=== PATIENT | female | born 1995 | race Caucasian/White ===

== ENCOUNTER 2022-10-03 07:36 | Inpatient (IN) ==
[2022-10-03] MEDS ORDERED: OXYTOCIN 30 UNITS/500 ML BAG IV PRN ×4 (07:53→19:57)
--- NOTE | 2022-10-03 08:10 | Obstetrical Progress Note ---
Date of Service October 03, 2022 Assessment & Plan (1) Encounter for induction of labor: (2) Gestational diabetes mellitus (GDM) affecting , antepartum: (3) Need for rhogam due to Rh negative mother: Plan - Patient admitted to labor and delivery for initiation of medical induction of labor - GDM noted at 31 wks EGA, 2 hour glucose testing declined, monitored glucose at home briefly, no active tx or insulin mgmt - TAMMY /-1 at last OB visit, no Osborne bulb placement - Presenting TAMMY pending exam by Dr. Dhillon - No evidence of contractions, thus oxytocin augmentation of labor will be started per protocol - Once contractions are progressing, will consider ROM - Discussed w/ patient alternate methods of pain control (Stadol) prior to epidural at patient request - Will anticipate epidural as contractions arise - Labs pending Admission and Anticipated Discharge Date Admission Date: October 03, 2022 Doris Humphreys is a 27 year old female currently at 39 1/7 with DEEPAK 10/09/22 determined by LMP (01/02/22) who presents to Labor and Delivery for scheduled induction. Complications: Rh - mother, hx of PPH, GDM at 31 wks (declined 2 hour) Reason for Induction/: Elective Movement: Yes Fluid Loss/ROM: No Bloody show/discharge: No External FHT and uterine monitor: Category 1, tracing reactive, good FHT variability, average 135 w/ acels and no dcels, no contractions Last OB appointment: 10/01/22, regular care Labs: Blood Type: A- Antibody Screen: Negative Hg/Hct (today): Pending WBC/Plt (today): Pending Rubella: Immune RPR: Non-reactive Gonorrhea: Negative Chlamydia: Negative HIV: Negative HbSAg: Negative GBS: Negative Cff-DNA: Low risk ROS: - Denies fever, chills, sweats - Denies dyspnea or pleuritic pain - Denies chest pain, palpitations, or pressure - Denies breast pain - Denies dysuria - Denies headache or visual changes Physical Exam Physical Exam: General: Alert, oriented. No acute distress. Cardiac: Regular rate and rhythm, no murmurs/rubs/gallops. Respiratory: Clear to auscultation bilaterally a/p, no wheezes/rales/rhonchi. No increased work of breathing. Symmetrical chest rise. No respiratory distress. Abdomen: Gravid; reactive FHTs; Position: Vertex by Kayden Maneuver Pelvic: TAMMY pending per Dr. Dhillon Lower Extremities: No lower extremity edema or swelling. No deep calf pain. Wu's negative bilaterally. Results & Data ([facility]) Vital Signs (Past 12 Hours) Vital Signs Temp Pulse Resp BP 10/03/22 07:48 36.8 C 76 22 103/68 Resident Activity Tracking Resident Involvement: Resident Care Provided Care Provided: OB Delivery
[2022-10-03] MEDS ORDERED: LIDOCAINE 1% LOCAL 20 ML VIAL INFIL PRN (08:11)
--- NOTE | 2022-10-03 08:24 | History & Physical Report ---
Date of Service October 03, 2022 Assessment & Plan (1) Encounter for induction of labor: (2) Gestational diabetes mellitus (GDM) affecting , antepartum: (3) Need for rhogam due to Rh negative mother: Plan - Patient admitted to labor and delivery for initiation of medical induction of labor - GDM noted at 31 wks EGA, 2 hour glucose testing declined, monitored glucose at home briefly, no active tx or insulin mgmt - TAMMY /-1 at last OB visit, no Osborne bulb placement - Presenting TAMMY pending exam by Dr. Dhillon - No evidence of contractions, thus oxytocin augmentation of labor will be started per protocol - Once contractions are progressing, will consider ROM - Discussed w/ patient alternate methods of pain control (Stadol) prior to epidural at patient request - Will anticipate epidural as contractions arise - Labs pending Admission and Anticipated Discharge Date Admission Date: October 03, 2022 History of Present Illness Chief Complaint: Induction of Labor Primary Care Provider: Navi Humphreys is a 27 year old female currently at 39 1/7 with DEEPAK 10/09/22 determined by LMP (01/02/22) who presents to Labor and Delivery for scheduled induction. Complications: Rh - mother, hx of PPH, GDM at 31 wks (declined 2 hour) Reason for Induction/: Elective Movement: Yes Fluid Loss/ROM: No Bloody show/discharge: No External FHT and uterine monitor: Category 1, tracing reactive, good FHT variability, average 135 w/ acels and no dcels, no contractions Last OB appointment: 10/01/22, regular care Labs: Blood Type: A- Antibody Screen: Negative Hg/Hct (today): Pending WBC/Plt (today): Pending Rubella: Immune RPR: Non-reactive Gonorrhea: Negative Chlamydia: Negative HIV: Negative HbSAg: Negative GBS: Negative Cff-DNA: Low risk ROS: -Denies fever, chills, sweats -Denies dyspnea or pleuritic pain -Denies chest pain, palpitations, or pressure -Denies breast pain -Denies dysuria -Denies headache or visual changes Allergies Allergy/AdvReac Type Severity Reaction Status Date / Time No Known Allergies Allergy Verified 10/01/22 10:21 Home Medications Medication Instructions Recorded Confirmed Type prenat.vits,kiran,[id number] 1 tab PO DAILY 02/20/22 10/01/22 History acetone (urine) test (Ketone Urine #50 ea 08/31/22 10/01/22 Rx Test strips) blood sugar diagnostic (OneTouch #150 ea 08/31/22 10/01/22 Rx Verio test strips) blood-glucose meter (OneTouch #1 ea 08/31/22 10/01/22 Rx Verio Reflect Meter) lancets 33 gauge (OneTouch Delica #150 ea 08/31/22 10/01/22 Rx Lancets) Patient History Medical History (Updated 10/03/22 @ 08:05 by Avelina Lama DO) GERD (gastroesophageal reflux disease) History of anxiety History of asthma NO CURRENT PROBLEM Surgical History H/O ovarian cystectomy History of anesthesia reaction ANXIETY COMING OUT OF ANESTHESIA History of cholecystectomy History of myringotomy X 2 History of tonsillectomy and adenoidectomy [place] teeth removed Family History Grandmother (Maternal) Multiple myeloma Social History Smoking Status: Never smoker Second Hand Exposure: No; Hx Alcohol Use: No Hx Substance Use: No Preferred Language: Vietnamese Communication Ability: Effective Letter Stamping Machine Operator Required: No Beliefs That Will Affect Care: None marital status: marital status details: Hunter (28) [phone] Current Living Situation: Spouse Current Living Situation Comment: lives with FOB, daughter, 1 cat, fob to change litter. current occupational status: employed current occupation: medical assembler. Feels Safe at Home: Yes Assistive Devices: Contacts Physical Exam Physical Exam: General: Alert, oriented. No acute distress. Cardiac: Regular rate and rhythm, no murmurs/rubs/gallops. Respiratory: Clear to auscultation bilaterally a/p, no wheezes/rales/rhonchi. No increased work of breathing. Symmetrical chest rise. No respiratory distress. Abdomen: Gravid; reactive FHTs; Position: Vertex by Kayden Maneuver Pelvic: TAMMY pending per Dr. Dhillon Lower Extremities: No lower extremity edema or swelling. No deep calf pain. Wu's negative bilaterally. Results & Data ([facility]) Vital Signs (Past 12 Hours) Vital Signs Temp Pulse Resp BP 10/03/22 07:48 36.8 C 76 22 103/68 Code Status & VTE Plan VTE Prophylaxis Plan VTE Prophylaxis will be ordered: Yes Resident Activity Tracking Resident Involvement: Resident Care Provided Care Provided: OB Delivery
[2022-10-03] MEDS: LACTATED RINGER'S 1,000 ML IV PRN ×2 (08:30→13:29)
[2022-10-03 09:02] LABS: Hematocrit (blood only) 32.3 % (37.0-47.0); Hemoglobin 10.9 g/dl (12.0-16.0); Mean Corpuscular Hemoglobin 29.3 pg (25.0-34.0); Mean Corpuscular Hgb Conc 33.7 g/dL (32.0-36.0); Mean Corpuscular Volume 86.8 fL (80.0-100.0); Mean Platelet Volume 10.5 fL (9.4-12.4); Platelet Count 177 K/uL (130-400); RDW Coefficient of Variation 14.2 % (11.5-14.5); RDW Standard Deviation 44.7 fL (36.4-46.3); Red Blood Count 3.72 M/uL (4.20-5.40)
[2022-10-03 10:06] LABS: Albumin Level 3.4 gm/dl (3.4-5.0); Bilirubin,Total 1.1 mg/dl (0.2-1.0); Calcium 8.7 mg/dl (8.5-10.1); Potassium 3.7 mmol/L (3.5-5.1)
[2022-10-03 10:12] LABS: Albumin Globulin Ratio 1.1 (0.9-2); BUN Creatinine Ratio 10.3 (10-20); Creatinine Clr Calc Pharmacy 133.1 ml/min; Est GFR (African American) 145.4 ml/min; Est GFR (Non-African American) 125.4 ml/min; Total Protein 6.4 gm/dl (6.0-8.3)
[2022-10-03] MEDS ORDERED: ePHEDrine sulfate 50 MG/ML AMP ONE (13:13)
[2022-10-03] MEDS ORDERED: fentaNYL 2MCG/ML ROPIVACAINE 1.25MG/ML 100 ML BAG EPI ONE (13:14)
[2022-10-03] MEDS ORDERED: LIDOCAINE 2%/EPINEPHRINE 1:200,000 20 ML SDV ONE (13:14)
[2022-10-03] MEDS ORDERED: BUPIVACAINE 0.25% 30 ML VIAL ONE (13:14)
[2022-10-03] MEDS ORDERED: SODIUM CHLORIDE 0.9% INJ 10 ML VIAL ONE (13:14)
[2022-10-03] MEDS ORDERED: fentaNYL citrate 100 MCG/2 ML VIAL ONE (13:14)
[2022-10-03] MEDS ORDERED: ePHEDrine sulfate 50 MG/ML AMP IV PRN (14:13)
[2022-10-03] MEDS ORDERED: ONDANSETRON INJ 2 MG/ML 2 ML VIAL IV PRN (14:13)
[2022-10-03] MEDS ORDERED: fentaNYL 2MCG/ML ROPIVACAINE 1.25MG/ML 100 ML BAG EPI PRN (14:13)
[2022-10-03] MEDS ORDERED: NALBUPHINE HCL INJ 10 MG/ML AMP IV PRN (14:13)
[2022-10-03] MEDS ORDERED: NALOXONE HCL 1 MG in SODIUM CHLORIDE 0.9% 1000ML 1,000 ML IV PRN (14:13)
[2022-10-03] MEDS ORDERED: diphenhydrAMINE 50 MG/ML VIAL IV PRN (14:13)
[2022-10-03] MEDS ORDERED: NALOXONE HCL 0.4 MG/1 ML VIAL/CARP IV PRN (14:13)
--- NOTE | 2022-10-03 14:13 | Anesthesiology Consultation ---
Date of Service October 03, 2022 Assessment & Plan Chart Review Chart Review: Acceptable Risk for Surgery and Patient NOT seen in Pre Admission Testing Consults Requested none ASA ASA2 Proposed Anesthesia Anesthesia Type: Labor Epidural Risk / Benefits Reviewed With: PT / POA / Parent / Guardian, Accepts Plan and Informed Consent Obtained History Height/Weight Height: 5 ft 2 in Weight: 70.853 kg Allergies Allergy/AdvReac Type Severity Reaction Status Date / Time No Known Allergies Allergy Verified 10/01/22 10:21 Medications Home Medications Medication Instructions Recorded Confirmed Last Taken prenat.vits,kiran,hcz-[id number] 1 tab PO DAILY 02/20/22 10/01/22 Unknown acetone (urine) test (Ketone Urine #50 ea 08/31/22 10/01/22 Unknown Test strips) blood sugar diagnostic (OneTouch #150 ea 08/31/22 10/01/22 Unknown Verio test strips) blood-glucose meter (OneTouch #1 ea 08/31/22 10/01/22 Unknown Verio Reflect Meter) lancets 33 gauge (OneTouch Delica #150 ea 08/31/22 10/01/22 Unknown Lancets) Active Medications Generic Name Dose Route Start Last Admin Trade Name Freq PRN Reason Stop Dose Admin Lactated Ringer's 1,000 mls @ 125 mls/hr 10/03/22 08:11 10/03/22 13:47 Lr IV 10/05/22 08:10 125 mls/hr .Q8H PRN Infusion L&D Protocol Protocol Oxytocin 30 units in 500 mls @ 18 mls/hr 10/03/22 08:19 10/03/22 13:00 Pitocin IV 10/05/22 08:18 1.08 units/hr .Q24H PRN 18 mls/hr Labor Induction/Augmentation Titration Protocol 1.08 UNITS/HR Past Medical History Medical History (Updated 10/03/22 @ 08:05 by Avelina Lama DO) GERD (gastroesophageal reflux disease) History of anxiety History of asthma NO CURRENT PROBLEM Exercise / Class Metabolic Activity II 4-5 Yardwork/Stairs/Walk up hill Past Family History Family History Grandmother (Maternal) Multiple myeloma Past Surgical History Surgical History H/O ovarian cystectomy History of anesthesia reaction ANXIETY COMING OUT OF ANESTHESIA History of cholecystectomy History of myringotomy X 2 History of tonsillectomy and adenoidectomy [place] teeth removed Past Anesthesia History No Hx of Anesthesia Complications and No Family Hx of Anesthesia Complications History of PONV No Hx of PONV and No Hx of Motion Sickness Social History Smoking Status: Never smoker Hx Alcohol Use: No Alcohol type: beer and wine alcohol intake frequency: a few times a month Hx Substance Use: No substance use type: does not use Physical Exam Vital Signs Last Vital Signs Temp 36.8 C 10/03/22 09:03 Pulse 97 H 10/03/22 14:12 Resp 22 10/03/22 09:03 BP 110/68 10/03/22 14:12 Pulse Ox 100 10/03/22 14:10 ENMT Mouth: no dentition abnormality Thyromental Distance: > or= 3.5 Finger Breadths Mallampati Class: II Neck normal visual inspection Respiratory normal respiratory effort Auscultation: lungs clear to auscultation bilaterally Cardiovascular Rate/Rhythm: regular rate and regular rhythm Psychiatric Orientation: alert Testing Laboratory Results 10/03/22 08:43 10/03/22 08:43
--- NOTE | 2022-10-03 14:44 | Labor Progress Brief Note ---
Date of Service October 03, 2022 Subjective comfortable with epidural Assessment & Plan (1) Encounter for induction of labor: Plan continue current management. fetus category one. anticipate . Admission and Anticipated Discharge Date Admission Date: October 03, 2022 Physical Exam Physical Exam: cx--4/75/-2 arom--clear toco--q3-4min, pit at 18 efm--130s wtih mod variability, accels to 160s, no decels Results & Data ([place]) Vital Signs (Past 12 Hours) Vital Signs Temp Pulse Resp BP Pulse Ox 10/03/22 09:03 36.8 C 22 10/03/22 14:40 99 10/03/22 14:40 98 H 10/03/22 14:39 80 10/03/22 14:39 125/85 10/03/22 14:35 100 10/03/22 14:35 81 10/03/22 14:30 100 10/03/22 14:30 86 10/03/22 14:25 99 10/03/22 14:25 81 10/03/22 14:24 85 10/03/22 14:24 108/62 10/03/22 14:22 82 10/03/22 14:22 108/65 10/03/22 14:20 99 10/03/22 14:20 80 10/03/22 14:20 90 10/03/22 14:20 113/63 10/03/22 14:18 83 10/03/22 14:18 106/60 10/03/22 14:15 99 10/03/22 14:15 92 H 10/03/22 14:14 93 H 10/03/22 14:14 118/69 10/03/22 14:12 97 H 10/03/22 14:12 110/68 10/03/22 14:10 100 10/03/22 14:10 96 H 10/03/22 14:10 99/75 L 10/03/22 14:08 101 H 10/03/22 14:08 120/82 10/03/22 14:06 90 10/03/22 14:06 118/71 10/03/22 14:05 100 10/03/22 14:05 85 10/03/22 14:04 98 H 10/03/22 14:04 112/65 10/03/22 14:00 100 10/03/22 14:00 82 10/03/22 14:01 86 10/03/22 14:01 115/70 10/03/22 13:55 100 10/03/22 13:55 99 H 10/03/22 13:50 100 10/03/22 13:50 79 10/03/22 13:45 100 10/03/22 13:45 100 H 10/03/22 13:39 100 10/03/22 13:39 82 10/03/22 13:34 100 10/03/22 13:34 74 10/03/22 13:29 100 10/03/22 13:29 68 10/03/22 13:24 100 10/03/22 13:24 88 10/03/22 12:38 80 10/03/22 12:38 121/64 10/03/22 07:48 36.8 C 76 22 103/68 Coding Level of Care Code None Diagnoses Encounter for induction of labor Z34.90
[2022-10-03] MEDS ORDERED: OXYTOCIN 10 UNITS/ML 10ML VIAL ONE (15:18)
[2022-10-03] MEDS ORDERED: MoRPHine SULFATE PF 1 MG/ML 10 ML AMP/VIAL ONE (15:18)
[2022-10-03] MEDS ORDERED: ONDANSETRON INJ 2 MG/ML 2 ML VIAL ONE (15:18)
--- NOTE | 2022-10-03 18:04 | Labor Progress Brief Note ---
Date of Service October 03, 2022 Subjective comfortable Assessment & Plan (1) Encounter for induction of labor: Plan Place iupc. Aim for 200mvus. Can increase pit to max 30. fetus category one. Admission and Anticipated Discharge Date Admission Date: October 03, 2022 Physical Exam Physical Exam: cx--4+/80/-2 toco--q2-4min, pit at 20 iupc placed efm--130s wtih mod variability, accels to 160s ,no decels Results & Data ([place]) Vital Signs (Past 12 Hours) Vital Signs Temp Pulse Resp BP Pulse Ox 10/03/22 09:03 36.8 C 22 10/03/22 18:00 100 10/03/22 18:00 81 10/03/22 17:55 98 10/03/22 17:55 71 10/03/22 17:55 72 10/03/22 17:55 119/69 10/03/22 17:50 100 10/03/22 17:50 83 10/03/22 17:45 100 10/03/22 17:45 72 10/03/22 17:40 95 10/03/22 17:41 93 10/03/22 17:40 79 10/03/22 17:41 79 10/03/22 17:39 81 10/03/22 17:39 98/63 L 10/03/22 17:35 98 10/03/22 17:35 72 10/03/22 17:30 98 10/03/22 17:30 77 10/03/22 17:25 100 10/03/22 17:25 76 10/03/22 17:22 92 10/03/22 17:22 81 10/03/22 17:20 99 10/03/22 17:20 71 10/03/22 17:15 98 10/03/22 17:15 87 10/03/22 17:10 100 10/03/22 17:10 77 10/03/22 17:09 73 10/03/22 17:09 112/69 10/03/22 17:07 93 10/03/22 17:07 79 10/03/22 17:05 98 10/03/22 17:05 78 10/03/22 17:00 99 10/03/22 17:00 80 10/03/22 16:56 90 10/03/22 16:56 93 H 10/03/22 16:55 99 10/03/22 16:55 89 10/03/22 16:50 98 10/03/22 16:50 75 10/03/22 16:45 99 10/03/22 16:45 73 10/03/22 16:40 99 10/03/22 16:40 76 10/03/22 16:39 73 10/03/22 16:39 93/56 L 10/03/22 16:35 99 10/03/22 16:35 76 10/03/22 16:30 100 10/03/22 16:30 76 10/03/22 16:25 100 10/03/22 16:25 81 10/03/22 16:23 68 10/03/22 16:23 113/59 L 10/03/22 16:20 98 10/03/22 16:20 79 10/03/22 16:15 100 10/03/22 16:15 77 10/03/22 16:10 100 10/03/22 16:10 72 10/03/22 16:09 75 10/03/22 16:09 119/56 L 10/03/22 16:05 99 10/03/22 16:05 79 10/03/22 16:00 99 10/03/22 16:00 75 10/03/22 15:46 18 10/03/22 15:46 36.7 C 18 10/03/22 15:55 99 10/03/22 15:55 75 10/03/22 15:50 99 10/03/22 15:50 74 10/03/22 15:50 108/60 10/03/22 15:45 99 10/03/22 15:45 77 10/03/22 15:46 74 10/03/22 15:46 103/60 10/03/22 15:41 68 10/03/22 15:41 100/54 L 10/03/22 15:40 98 10/03/22 15:40 74 10/03/22 15:35 100 10/03/22 15:35 72 10/03/22 15:35 71 10/03/22 15:35 96/57 L 10/03/22 15:31 71 10/03/22 15:31 110/64 10/03/22 15:30 99 10/03/22 15:30 73 10/03/22 15:25 99 10/03/22 15:25 72 10/03/22 15:25 76 10/03/22 15:25 113/73 10/03/22 15:21 69 10/03/22 15:21 110/70 10/03/22 15:20 99 10/03/22 15:20 71 10/03/22 15:16 77 10/03/22 15:16 110/72 10/03/22 15:15 98 10/03/22 15:15 69 10/03/22 15:10 99 10/03/22 15:10 69 10/03/22 15:10 69 10/03/22 15:10 110/76 10/03/22 15:05 99 10/03/22 15:05 71 10/03/22 15:05 63 10/03/22 15:05 111/73 10/03/22 15:00 100 10/03/22 15:00 75 10/03/22 15:00 72 10/03/22 15:00 120/80 10/03/22 14:55 100 10/03/22 14:55 73 10/03/22 14:56 70 10/03/22 14:56 120/78 10/03/22 14:50 98 10/03/22 14:50 73 10/03/22 14:50 119/77 10/03/22 14:46 77 10/03/22 14:46 116/77 10/03/22 14:45 100 10/03/22 14:45 79 10/03/22 14:40 99 10/03/22 14:40 98 H 10/03/22 14:39 80 10/03/22 14:39 125/85 10/03/22 14:35 100 10/03/22 14:35 81 10/03/22 14:30 100 10/03/22 14:30 86 10/03/22 14:25 99 10/03/22 14:25 81 10/03/22 14:24 85 10/03/22 14:24 108/62 10/03/22 14:22 82 10/03/22 14:22 108/65 10/03/22 14:20 99 10/03/22 14:20 80 10/03/22 14:20 90 10/03/22 14:20 113/63 10/03/22 14:18 83 10/03/22 14:18 106/60 10/03/22 14:15 99 10/03/22 14:15 92 H 10/03/22 14:14 93 H 10/03/22 14:14 118/69 10/03/22 14:12 97 H 10/03/22 14:12 110/68 10/03/22 14:10 100 10/03/22 14:10 96 H 10/03/22 14:10 99/75 L 10/03/22 14:08 101 H 10/03/22 14:08 120/82 10/03/22 14:06 90 10/03/22 14:06 118/71 10/03/22 14:05 100 10/03/22 14:05 85 10/03/22 14:04 98 H 10/03/22 14:04 112/65 10/03/22 14:00 100 10/03/22 14:00 82 10/03/22 14:01 86 10/03/22 14:01 115/70 10/03/22 13:55 100 10/03/22 13:55 99 H 10/03/22 13:50 100 10/03/22 13:50 79 10/03/22 13:45 100 10/03/22 13:45 100 H 10/03/22 13:39 100 10/03/22 13:39 82 10/03/22 13:34 100 10/03/22 13:34 74 10/03/22 13:29 100 10/03/22 13:29 68 10/03/22 13:24 100 10/03/22 13:24 88 10/03/22 12:38 80 10/03/22 12:38 121/64 10/03/22 07:48 36.8 C 76 22 103/68 Coding Level of Care Code None Diagnoses Encounter for induction of labor Z34.90
[2022-10-03] MEDS ORDERED: ACETAMINOPHEN 325 MG TAB PO PRN (19:57)
[2022-10-03] MEDS ORDERED: bisacodyL 10 MG SUPP PR PRN (19:57)
[2022-10-03] MEDS ORDERED: HYDROCORTISONE ACETATE 25 MG SUPP PR PRN (19:57)
[2022-10-03] MEDS ORDERED: DIPHTHERIA/TETANUS/PERTUSSIS 0.5mL SYR/VIAL (Age 7+yrs) IM ONE (19:57)
[2022-10-03] MEDS ORDERED: METHYLERGONOVINE MALEATE 0.2 MG/ML AMP IM ONE (19:57)
[2022-10-03] MEDS ORDERED: BENZOCAINE 20% AER SPR 82.5 GM CAN EXT PRN (19:57)
--- NOTE | 2022-10-03 20:04 | Delivery Summary ---
Vaginal Delivery Summary Date of Service October 03, 2022 Vaginal Delivery Summary (bilateral labial laceration and repair) Pre-operative Diagnosis: at 39 weeks elective induction Post-operative Diagnosis: same Procedure: pitocin induction epidural arom mild shoulder dystocia bilateral labial laceration and repair EBL: 450cc Anesthesia: epidural Procedure: the patient presented to labor and delivery for elective induction of labor. Pitocin initiated. Once in a good contraction pattern, got epidural and then arom for clear fluid. Patient required iupc for monitoring. She then progressed to c/c/+1. The patient pushed for 4 contractions to deliver a viable male in maya position. The head was delivered and then a mild shoulder dystocia was encountered. The anterior shoulder was delivered with Bert and suprapubic pressure. the rest of the baby was then delivered easily. The baby was vigorous. The nose and mouth were bulb suctioned and the was placed in the maternal abdomen for drying and attention. Cord was clamped and cut at one minute of life. The dystocia lasted for less than 15secs. Cord blood and segment obtained. Placenta delivered spontaneous, intact with a three vessel cord. Cervix/sulci/rectum were intact. bilateral labial lacerations were repaired in the normal standard fashion. Hemostasis obtained with dilute pitocin and fundal massage and IM methergine. EBL 450cc. Apgars were 8/9. Mother and baby doing well at the end of the delivery. [facility] Vaginal Delivery Charge Delivery Type Details: (bilateral labial laceration and repair)
[2022-10-03] MEDS: DOCUSATE SODIUM 100 MG CAP PO SCH (22:58)
[2022-10-04] MEDS: IBUPROFEN 600 MG TAB PO PRN ×3 (01:11→15:18)
--- NOTE | 2022-10-04 06:12 | Obstetrical Progress Note ---
Date of Service October 04, 2022 Assessment & Plan (1) care following vaginal delivery: (2) Need for rhogam due to Rh negative mother: (3) Gestational diabetes mellitus (GDM) affecting , antepartum: Plan - Overall, Juliann is concerned about worsening cramping in lower abdomen - feeding going well without concern - Urinating and passing gas appropriately - Ambulating well in room - Pain uncontrolled w/ Ibuprofen and Tylenol, consider additional pain mgmt - Follow urine output to monitor for urinary retention d/t elevated fundus - Hgb 10.9 on 08/02 - Vitals stable and wnl - Routine PP care progressing well - Anticipate discharge @ 24-48 hours PP - Recommending f/u outpatient in 6 weeks Admission and Anticipated Discharge Date Admission Date: October 03, 2022 Supervising Physician Co-Signing Physician Notes Resident Physician Supervision Note: I interviewed and examined the patient. Discussed with Dr. Lama and agree with findings and plan as documented in the note. Any exceptions or clarifications are listed here: Patient's biggest concern is her cramping pain. This feels like contractions. Has times when it is severe /10 and times when it is much improved. She notes she has been trying tylenol and ibuprofen and heat without alot of relief. Did not notice a big change when bladder full or empty. Her bleeding is controlled and not passing large clots. She notes it with breast feeding as well. ON exam the uterus is firm at u, nt, mobile. Stitches are intact with minimal swelling. Placed finger in vagina and cannot appreciate a hematoma, this did cause her to cramp. Has h/h pending but will convert to cbc to evaluate wbc. Wondering if she has a clot in the uterus she is trying to pass without success, but bleeding reasonable and fundus firm. Is written for a percocet so will trial that and see how pain does through the am. May want to consider ultrasound to evaluate lining if persists. Definitely seems like uterine cramping/contractions. She notes she would get an epidural if she could. Documented By: Genesis Dhillon MD, FACOG Subjective Patient is a 27F who is PPD #1 following delivery at 39 1/7. She reports feeling well overall this morning. - Ambulation - well throughout room - Voiding/Osborne - independent voids, no dysuria or pressure, currently has urge to urinate - Gas/Stool - passing gas, no bowel movement - Diet - regula (small amounts), mild nausea after delivery, no emesis - Lochia - diminishing, light amount - Feeding Type - breast feeding going well - Pain Level - 8/10, uncontrolled with Ibuprofen and Tylenol - Patient describes worsening cramping sensation in her lower abdomen (states worse than contractions) Review of Systems - Denies fever, chills, sweats - Denies shortness of breath, difficulty breathing, chest pain, palpitations, chest pressure. - Denies breast pain. - Denies dysuria. - Denies headache or changes in vision. Physical Exam Physical Exam: General: Alert, oriented. No acute distress. Cardiac: RRR, normal S1/S2, no murmurs/rubs/gallops. Respiratory: Non-labored, CTAB, no wheezes/rales/rhonchi. Symmetric chest rise. Abdomen: Soft, nontender, nondistended. Bowel sounds present. Uterus: Uterine fundus firm, palpable at umbilicus. Lower Extremities: No lower extremity edema or swelling. No deep calf pain. Wu's negative bilaterally. Results & Data ([facility]) Vital Signs (Past 12 Hours) Vital Signs Temp Pulse Pulse Pulse Resp BP BP 10/04/22 03:00 36.7 C 80 18 110/71 10/03/22 22:45 36.8 C 97 H 18 115/75 10/03/22 22:00 18 10/03/22 21:30 18 10/03/22 21:00 16 L 10/03/22 20:45 16 10/03/22 20:30 18 10/03/22 20:15 16 L 10/03/22 20:00 16 10/03/22 19:20 36.8 C 18 10/03/22 22:03 81 10/03/22 22:03 116/63 10/03/22 22:00 10/03/22 22:00 86 10/03/22 21:55 10/03/22 21:55 93 H 10/03/22 21:50 10/03/22 21:50 102 H 10/03/22 21:45 10/03/22 21:45 89 10/03/22 21:40 10/03/22 21:40 84 10/03/22 21:37 82 10/03/22 21:37 119/59 L 10/03/22 21:35 10/03/22 21:35 83 10/03/22 21:30 10/03/22 21:30 88 10/03/22 21:30 116/57 L 10/03/22 21:25 10/03/22 21:25 86 10/03/22 21:20 10/03/22 21:20 97 H 10/03/22 21:18 10/03/22 21:18 94 H 10/03/22 21:15 10/03/22 21:15 88 10/03/22 21:10 10/03/22 21:10 86 10/03/22 21:07 10/03/22 21:06 88 10/03/22 21:07 93 H 10/03/22 21:06 113/68 10/03/22 21:05 10/03/22 21:05 90 10/03/22 21:00 10/03/22 21:00 100 H 10/03/22 20:55 10/03/22 20:55 99 H 10/03/22 20:50 10/03/22 20:50 96 H 10/03/22 20:45 10/03/22 20:45 89 10/03/22 20:44 85 10/03/22 20:44 123/70 10/03/22 20:40 10/03/22 20:40 89 10/03/22 20:35 10/03/22 20:35 86 10/03/22 20:30 10/03/22 20:30 90 10/03/22 20:29 87 10/03/22 20:29 117/76 10/03/22 20:25 10/03/22 20:25 87 10/03/22 20:24 10/03/22 20:24 91 H 10/03/22 20:20 10/03/22 20:20 91 H 10/03/22 20:15 10/03/22 20:15 89 10/03/22 20:14 89 10/03/22 20:14 143/64 H 10/03/22 20:10 10/03/22 20:10 94 H 10/03/22 20:05 10/03/22 20:05 107 H 10/03/22 20:00 10/03/22 20:00 105 H 10/03/22 20:00 102 H 10/03/22 20:00 139/72 10/03/22 19:55 10/03/22 19:55 99 H 10/03/22 19:54 181 H 10/03/22 19:54 105/52 L 10/03/22 19:50 10/03/22 19:50 106 H 10/03/22 19:45 10/03/22 19:45 105 H 10/03/22 19:40 10/03/22 19:40 152 H 10/03/22 19:38 10/03/22 19:38 141 H 10/03/22 19:35 10/03/22 19:35 128 H 10/03/22 19:33 10/03/22 19:33 114 H 10/03/22 19:30 10/03/22 19:30 109 H 10/03/22 19:25 10/03/22 19:25 98 H 10/03/22 19:24 90 10/03/22 19:24 114/72 10/03/22 19:20 10/03/22 19:20 85 10/03/22 19:15 10/03/22 19:15 72 10/03/22 19:10 10/03/22 19:10 92 H 10/03/22 19:10 99/61 L 10/03/22 19:05 10/03/22 19:05 88 10/03/22 19:00 10/03/22 19:00 86 10/03/22 18:55 10/03/22 18:55 75 10/03/22 18:50 10/03/22 18:50 77 10/03/22 18:48 10/03/22 18:48 81 10/03/22 18:45 10/03/22 18:45 81 10/03/22 18:40 10/03/22 18:40 79 10/03/22 18:38 76 10/03/22 18:38 111/58 L 10/03/22 18:35 10/03/22 18:35 81 10/03/22 18:30 10/03/22 18:30 87 10/03/22 18:25 10/03/22 18:25 82 10/03/22 18:23 83 10/03/22 18:23 116/55 L 10/03/22 18:20 10/03/22 18:20 68 10/03/22 18:15 10/03/22 18:15 74 Pulse Ox O2 Del Method 10/04/22 03:00 Room Air 10/03/22 22:45 Room Air 10/03/22 22:00 10/03/22 21:30 10/03/22 21:00 10/03/22 20:45 10/03/22 20:30 10/03/22 20:15 10/03/22 20:00 10/03/22 19:20 10/03/22 22:03 10/03/22 22:03 10/03/22 22:00 97 10/03/22 22:00 10/03/22 21:55 97 10/03/22 21:55 10/03/22 21:50 96 10/03/22 21:50 10/03/22 21:45 97 10/03/22 21:45 10/03/22 21:40 96 10/03/22 21:40 10/03/22 21:37 10/03/22 21:37 10/03/22 21:35 96 10/03/22 21:35 10/03/22 21:30 96 10/03/22 21:30 10/03/22 21:30 10/03/22 21:25 97 10/03/22 21:25 10/03/22 21:20 97 10/03/22 21:20 10/03/22 21:18 94 10/03/22 21:18 10/03/22 21:15 95 10/03/22 21:15 10/03/22 21:10 96 10/03/22 21:10 10/03/22 21:07 94 10/03/22 21:06 10/03/22 21:07 10/03/22 21:06 10/03/22 21:05 96 10/03/22 21:05 10/03/22 21:00 96 10/03/22 21:00 10/03/22 20:55 97 10/03/22 20:55 10/03/22 20:50 96 10/03/22 20:50 10/03/22 20:45 96 10/03/22 20:45 10/03/22 20:44 10/03/22 20:44 10/03/22 20:40 96 10/03/22 20:40 10/03/22 20:35 96 10/03/22 20:35 10/03/22 20:30 96 10/03/22 20:30 10/03/22 20:29 10/03/22 20:29 10/03/22 20:25 95 10/03/22 20:25 10/03/22 20:24 92 10/03/22 20:24 10/03/22 20:20 97 10/03/22 20:20 10/03/22 20:15 97 10/03/22 20:15 10/03/22 20:14 10/03/22 20:14 10/03/22 20:10 97 10/03/22 20:10 10/03/22 20:05 97 10/03/22 20:05 10/03/22 20:00 97 10/03/22 20:00 10/03/22 20:00 10/03/22 20:00 10/03/22 19:55 97 10/03/22 19:55 10/03/22 19:54 10/03/22 19:54 10/03/22 19:50 98 10/03/22 19:50 10/03/22 19:45 99 10/03/22 19:45 10/03/22 19:40 96 10/03/22 19:40 10/03/22 19:38 86 L 10/03/22 19:38 10/03/22 19:35 100 10/03/22 19:35 10/03/22 19:33 94 10/03/22 19:33 10/03/22 19:30 98 10/03/22 19:30 10/03/22 19:25 99 10/03/22 19:25 10/03/22 19:24 10/03/22 19:24 10/03/22 19:20 97 10/03/22 19:20 10/03/22 19:15 99 10/03/22 19:15 10/03/22 19:10 97 10/03/22 19:10 10/03/22 19:10 10/03/22 19:05 97 10/03/22 19:05 10/03/22 19:00 97 10/03/22 19:00 10/03/22 18:55 98 10/03/22 18:55 10/03/22 18:50 97 10/03/22 18:50 10/03/22 18:48 93 10/03/22 18:48 10/03/22 18:45 98 10/03/22 18:45 10/03/22 18:40 98 10/03/22 18:40 10/03/22 18:38 10/03/22 18:38 10/03/22 18:35 98 10/03/22 18:35 10/03/22 18:30 99 10/03/22 18:30 10/03/22 18:25 98 10/03/22 18:25 10/03/22 18:23 10/03/22 18:23 10/03/22 18:20 99 10/03/22 18:20 10/03/22 18:15 98 10/03/22 18:15 Resident Activity Tracking Resident Involvement: Resident Care Provided Care Provided: OB Delivery
[2022-10-04 07:20] LABS: Hematocrit (blood only) 28.8 % (37.0-47.0); Hemoglobin 9.7 g/dl (12.0-16.0)
[2022-10-04 07:37] LABS: Mean Corpuscular Hemoglobin 29.1 pg (25.0-34.0); Mean Platelet Volume 10.6 fL (9.4-12.4); Platelet Count 168 K/uL (130-400); RDW Coefficient of Variation 14.3 % (11.5-14.5); RDW Standard Deviation 44.4 fL (36.4-46.3); Red Blood Count 3.33 M/uL (4.20-5.40)
[2022-10-04] MEDS: PRENATAL VITAMIN 1 TAB PO SCH (07:44)
[2022-10-04] MEDS: DOCUSATE SODIUM 100 MG CAP PO SCH ×2 (07:44→20:32)
[2022-10-04 07:47] LABS: Mean Corpuscular Hgb Conc 33.7 g/dL (32.0-36.0); Mean Corpuscular Volume 86.5 fL (80.0-100.0)
[2022-10-04] MEDS: oxyCODONE/ACETAMINOPHEN 5mg/325mg TAB PO PRN ×3 (11:53→20:30)
[2022-10-04] MEDS ORDERED: bisacodyL 5 MG TABEC PO SCH (20:00)
[2022-10-05] MEDS: oxyCODONE/ACETAMINOPHEN 5mg/325mg TAB PO PRN ×3 (00:36→11:27)
[2022-10-05] MEDS: IBUPROFEN 600 MG TAB PO PRN ×3 (00:36→11:28)
--- NOTE | 2022-10-05 06:18 | Obstetrical Progress Note ---
Date of Service October 05, 2022 Assessment & Plan (1) care following vaginal delivery: (2) Need for rhogam due to Rh negative mother: (3) Gestational diabetes mellitus (GDM) affecting , antepartum: Plan - Overall, Juliann is doing well, but she continues to have lower abdominal cramping - Infant feeding going well without concern - Urinating appropriately, denies passing gas, but has active bowel sounds - Ambulating well in room - Pain uncontrolled w/ Percocet - Hgb 9.7 on 08/03 - Vitals stable and wnl - Routine PP care progressing well - Anticipate discharge @ 24-48 hours PP - Recommending f/u outpatient in 6 weeks Admission and Anticipated Discharge Date Admission Date: October 03, 2022 Supervising Physician Co-Signing Physician Notes Patient seen and evaluated and agree with the above findings and plan. Stable for discharge. Pain much improved Subjective Patient is a 27F who is PPD #2 following delivery at 39 1/7. She reports feeling well overall this morning. - Ambulation - well throughout room - Voiding/Osborne - independent voids, no dysuria or pressure - Gas/Stool - denies passing gas, no bowel movement, taking stool softener - Diet - regular, no nausea, no emesis - Lochia - diminishing, light amount - Feeding Type - breast feeding going well - Pain Level - 7/10, controlled with Percocet Review of Systems - Denies fever, chills, sweats - Denies shortness of breath, difficulty breathing, chest pain, palpitations, chest pressure. - Denies breast pain. - Denies dysuria. - Denies headache or changes in vision. Physical Exam Physical Exam: General: Alert, oriented. No acute distress. Cardiac: RRR, normal S1/S2, no murmurs/rubs/gallops. Respiratory: Non-labored, CTAB, no wheezes/rales/rhonchi. Symmetric chest rise. Abdomen: Soft, nontender, nondistended. Bowel sounds present. Uterus: Uterine fundus firm, 2 cm below umbilicus Lower Extremities: No lower extremity edema or swelling. No deep calf pain. Wu's negative bilaterally. [facility] Vital Signs (Past 12 Hours) Vital Signs Temp Pulse Resp BP Pulse Ox O2 Del Method 10/05/22 00:10 36.8 C 78 16 100/64 96 Room Air Resident Activity Tracking Resident Involvement: Resident Care Provided Care Provided: OB Delivery
[2022-10-05] MEDS: PRENATAL VITAMIN 1 TAB PO SCH (08:58)
[2022-10-05] MEDS: DOCUSATE SODIUM 100 MG CAP PO SCH (08:58)
--- NOTE | 2022-10-05 10:01 | Communication Note ---
Date of Service: October 05, 2022 Patient requested that her Percocet Rx go to [facility]. I called [facility] and cancelled, and sent the same Rx to [facility].
--- NOTE | 2022-10-12 13:04 | Anesthesia Procedure Note ---
Date of Service October 12, 2022 Anesthesia Post Epidural Note Vital Signs Vital Signs: Temp Pulse Resp BP Pulse Ox O2 Del Method 36.6 C 97 H 16 107/68 96 Room Air 10/05/22 09:49 10/05/22 09:49 10/05/22 09:49 10/05/22 09:49 10/05/22 09:49 10/05/22 09:06 Pain Intensity Lower Abdomen: Pain Intensity: 2 Notes Mental Status: alert / awake / arousable Nausea / Vomiting: adequately controlled Pain: adequately controlled Airway Patency, RR, SpO2: stable & adequate BP & HR: stable & adequate Hydration State: stable & adequate Neuraxial Anesthesia: was administered and sensory block is resolving Anesthetic Complications: no major complications apparent and Pt Satisfied with anesthetic care Epidural: Removed without complications and With tip intact
== END 2022-10-05 11:45 | disposition home or self-care (01) | DRG 807 ==
LOC: 4S1 07:36 → 4E2 22:52